=== PATIENT | male | born 1945 | race Caucasian/White ===

== ENCOUNTER 2016-09-15 16:14 | Emergency (ER) | payer SELFPAY ==
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
--- NOTE | 2016-09-15 18:46 | ED ORDER SUMMARY ---
..... Patient: RUBENS JOHNSTON OrderSheet [facility] VisitID: [id number] [place] [address] 71y, M Registration Date/Time: 09/15/2016 ORDER SHEET Weight: 90.7 kg Allergies: Demerol GENERAL ORDERS: Medical Insurance Claims Specialist (Continuous) (16:35 09/15/2016 EKoroleva P.A.-C) (16:46 EBonham) CBC w Diff Urgent (16:35 09/15/2016 EKoroleva P.A.-C) (Ack 16:47 RKaruga) (17:47 LTapper) BMP Urgent (16:35 09/15/2016 EKoroleva P.A.-C) (Ack 16:47 RKaruga) (17:41 EBonham) EKG - ER Stat (16:35 09/15/2016 EKoroleva P.A.-C) (16:55 LTapper) Vitals (contralateral arm bp (R)) (16:36 09/15/2016 EKoroleva P.A.-C) (Ack 16:47 RKaruga) (17:41 EBonham) Vitals (17:38 09/15/2016 EKoroleva P.A.-C) (17:41 EBonham) MEDICATION ORDERS: IV FLUIDS: IV Saline Lock (16:35 09/15/2016 EKoroleva P.A.-C) (16:46 EBonham) ORDER SHEET NOTES: [Electronically signed by Cristina Mendoza P.A.-C (19:11 09/15/2016)] [Electronically signed by Gricelda Astorga R.N. (10:33 09/19/2016)] [Electronically locked/signed by Gricelda Astorga R.N. (10:33 09/19/2016)]
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
--- NOTE | 2016-09-15 18:46 | ED ORDER SUMMARY ---
..... Patient: RUBENS JOHNSTON OrderSheet [facility] VisitID: [id number] [place] [address] 71y, M Registration Date/Time: 09/15/2016 ORDER SHEET Weight: 90.7 kg Allergies: Demerol GENERAL ORDERS: Driver Service Technician (Continuous) (16:35 09/15/2016 EKoroleva P.A.-C) (16:46 EBonham) CBC w Diff Urgent (16:35 09/15/2016 EKoroleva P.A.-C) (Ack 16:47 RKaruga) (17:47 LTapper) BMP Urgent (16:35 09/15/2016 EKoroleva P.A.-C) (Ack 16:47 RKaruga) (17:41 EBonham) EKG - ER Stat (16:35 09/15/2016 EKoroleva P.A.-C) (16:55 LTapper) Vitals (contralateral arm bp (R)) (16:36 09/15/2016 EKoroleva P.A.-C) (Ack 16:47 RKaruga) (17:41 EBonham) Vitals (17:38 09/15/2016 EKoroleva P.A.-C) (17:41 EBonham) MEDICATION ORDERS: IV FLUIDS: IV Saline Lock (16:35 09/15/2016 EKoroleva P.A.-C) (16:46 EBonham) ORDER SHEET NOTES: [Electronically signed by Cristina Mendoza P.A.-C (19:11 09/15/2016)] [Electronically signed by Gricelda Astorga R.N. (10:33 09/19/2016)] [Electronically locked/signed by Gricelda Astorga R.N. (10:33 09/19/2016)]
--- NOTE | 2016-09-19 10:34 | ED DISCHARGE INSTRUCTIONS ---
Patient: RUBENS JOHNSTON General Instructions [facility] VisitID: [id number] [place] [address] 71y, M Registration Date/Time: 09/15/2016 Uncontrolled hypertension with hypertensive crisis. INSTRUCTIONS (SEE YOUR DR IN [place]). Warnings: Further evaluation is necessary. Prescription Medications: HCTZ 25 mg: Take 1 orally every 24 hours. Dispense fifteen (15). No refills. Follow-up: Follow up with doctor in five days. Understanding of the discharge instructions verbalized by patient. ADDITIONAL INFORMATION High Blood Pressure -- To Be Confirmed [No Tx] Your blood pressure was higher today than normal. Sometimes anxiety or pain can cause a temporary rise in blood pressure that later returns to normal. If your blood pressure is high on one measurement, this does not mean that you have hypertension (a chronic illness). However, you must have your blood pressure measured again within the next few days to find out if its still high. A normal blood pressure is 120/80 or less. The first (top) number is the "systolic" pressure. The second (bottom) number is the "diastolic" pressure. Hypertension exists when either the top number is 140 or higher, OR the bottom number is 90 or higher on repeated measurements. Blood pressure in the range of 120-140 (systolic) or 80-89 (diastolic) is considered "pre-hypertension". This means your are at risk for getting hypertension. You should have regular blood pressure checks to be sure your blood pressure is not rising. Home Care: Measure your blood pressure on 3 different days and write down the results. This can be done at your doctor's office or this facility. Some pharmacies and grocery stores offer automated blood pressure machines for your use. Follow Up: If your blood pressure is "high" (over 120/80) on 2 out of 3 days, you will need to follow up with your doctor for further evaluation and treatment. DO NOT PUT THIS OFF! Untreated high blood pressure increases the risk for heart attack, also known as acute myocardial infarction, or AMI, and stroke. It is a treatable condition. Get Prompt Medical Attention if any of the following occur: Chest pain or shortness of breath Severe headache Throbbing or rushing sound in the ears Nosebleed Sudden severe abdominal pain Extreme drowsiness, confusion or fainting Dizziness or vertigo (dizziness with spinning sensation) Weakness of an arm or leg or one side of the face Difficulty with speech or vision You have been given the following additional information: Hypertension, To Be Confirmed (Electronically signed by Cristina Mendoza P.A.-C 09/15/2016 19:11)
--- NOTE | 2016-09-19 10:34 | ED MAR SUMMARY ---
..... Medication Administration Record Located Within [facility] [address] [place], [place] [id number] Patient: RUBENS JOHNSTON Visit ID: [id number] 71y, M Weight: 90.7 kg Height/Length: 74 in BMI: 25.7 ALLERGIES: Demerol
--- NOTE | 2016-09-19 10:34 | ED MED RECONCILIATION SUMMARY ---
Patient: RUBENS JOHNSTON Medication Reconciliation Report [facility] VisitID: [id number] [address] [place] [address] 71y, M Registration Date/Time: 09/15/2016 Weight: 90.7 kg Height/Length: 74 in. BMI: 25.7 ALLERGIES: Demerol The patient's Home Medications are listed below: NONE. The source(s) of the original Home Medication information: Not obtained. The following Medications were given to the patient in the Emergency Department: None. The following Medications were prescribed to the patient: HCTZ 25 mg: Take 1 orally every 24 hours. Dispense fifteen (15). No refills. -- Cristina Mendoza P.A.-C
--- NOTE | 2016-09-19 10:34 | ED MED RECONCILIATION SUMMARY ---
Patient: RUBENS JOHNSTON Medication Reconciliation Report [facility] VisitID: [id number] [address] [place] [address] 71y, M Registration Date/Time: 09/15/2016 Weight: 90.7 kg Height/Length: 74 in. BMI: 25.7 ALLERGIES: Demerol The patient's Home Medications are listed below: NONE. The source(s) of the original Home Medication information: Not obtained. The following Medications were given to the patient in the Emergency Department: None. The following Medications were prescribed to the patient: HCTZ 25 mg: Take 1 orally every 24 hours. Dispense fifteen (15). No refills. -- Cristina Mendoza P.A.-C
--- NOTE | 2016-09-19 10:34 | ED MAR SUMMARY ---
..... Medication Administration Record [facility] [address] [place], [place] [id number] Patient: RUBENS JOHNSTON Visit ID: [id number] 71y, M Weight: 90.7 kg Height/Length: 74 in BMI: 25.7 ALLERGIES: Demerol
--- NOTE | 2016-09-19 10:34 | ED DISCHARGE INSTRUCTIONS ---
Patient: RUBENS JOHNSTON General Instructions [facility] VisitID: [id number] [place] [address] 71y, M Registration Date/Time: 09/15/2016 Uncontrolled hypertension with hypertensive crisis. INSTRUCTIONS (SEE YOUR DR IN [place]). Warnings: Further evaluation is necessary. Prescription Medications: HCTZ 25 mg: Take 1 orally every 24 hours. Dispense fifteen (15). No refills. Follow-up: Follow up with doctor in five days. Understanding of the discharge instructions verbalized by patient. ADDITIONAL INFORMATION High Blood Pressure -- To Be Confirmed [No Tx] Your blood pressure was higher today than normal. Sometimes anxiety or pain can cause a temporary rise in blood pressure that later returns to normal. If your blood pressure is high on one measurement, this does not mean that you have hypertension (a chronic illness). However, you must have your blood pressure measured again within the next few days to find out if its still high. A normal blood pressure is 120/80 or less. The first (top) number is the "systolic" pressure. The second (bottom) number is the "diastolic" pressure. Hypertension exists when either the top number is 140 or higher, OR the bottom number is 90 or higher on repeated measurements. Blood pressure in the range of 120-140 (systolic) or 80-89 (diastolic) is considered "pre-hypertension". This means your are at risk for getting hypertension. You should have regular blood pressure checks to be sure your blood pressure is not rising. Home Care: Measure your blood pressure on 3 different days and write down the results. This can be done at your doctor's office or this facility. Some pharmacies and grocery stores offer automated blood pressure machines for your use. Follow Up: If your blood pressure is "high" (over 120/80) on 2 out of 3 days, you will need to follow up with your doctor for further evaluation and treatment. DO NOT PUT THIS OFF! Untreated high blood pressure increases the risk for heart attack, also known as acute myocardial infarction, or AMI, and stroke. It is a treatable condition. Get Prompt Medical Attention if any of the following occur: Chest pain or shortness of breath Severe headache Throbbing or rushing sound in the ears Nosebleed Sudden severe abdominal pain Extreme drowsiness, confusion or fainting Dizziness or vertigo (dizziness with spinning sensation) Weakness of an arm or leg or one side of the face Difficulty with speech or vision You have been given the following additional information: Hypertension, To Be Confirmed (Electronically signed by Cristina Mendoza P.A.-C 09/15/2016 19:11)
== END 2016-09-15 19:03 | disposition home or self-care (01) ==
LOC: ED SRH 16:14
DX: I16.9 Hypertensive crisis, unspecified (principal); Z88.5 Allergy status to narcotic agent
CPT/HCPCS: 90047; 95059